=== PATIENT | female | born 1975 | race Caucasian/White ===

== ENCOUNTER 2020-08-05 16:48 | Emergency (ER) | payer OTHER ==
[2020-08-05 17:00] VITALS: BP 102/50; PULSE 84; TEMP 98.3; BMI 21.2
[2020-08-05] MEDS ORDERED: ACETAMINOPHEN 325 MG TABLET (FP) PO ONE (17:28)
[2020-08-05] MEDS ORDERED: ACETAMINOPHEN 325 MG TABLET (FP) ONE (17:42)
== END 2020-08-05 18:56 | disposition home or self-care (01) ==
LOC: JER 16:48
PROC: 0JQ10ZZ Repair Face Subcutaneous Tissue and Fascia, Open Approach (ICD-10-PCS; principal; 2020-08-05)
DX: S01.01XA Laceration without foreign body of scalp, initial encounter (principal)
CPT/HCPCS: 99284-25